=== PATIENT | female | born 1955 | race Caucasian/White ===

== ENCOUNTER 2018-06-07 05:42 | Inpatient (IN) ==
[2018-06-07] MEDS ORDERED: Naloxone 0.4 MG/ML INJ IVP PRN (09:49)
[2018-06-07] MEDS: 0.9 % Sodium Chloride 1,000 ML IVC SCH ×2 (11:36→23:08)
[2018-06-07] MEDS: Ondansetron 4 MG/2 ML VIAL IVP PRN ×2 (11:37→19:57)
[2018-06-07] MEDS: *HR* OxyCODONE Immed Rel 5 MG TABLET PO PRN ×2 (12:58→19:01)
--- NOTE | 2018-06-07 22:27 | Internal Med History&Physical ---
Date of Encounter: 06/07/18 Time of Encounter: 19:00 Internal Medicine - H&P: HPI Chief complaint: DIFFUSE ABDOMINAL PAIN WITH N/V. Admitted From: Home Plans for Post Hospital Care: Home History of present illness: Ms. Green is a 63 year old female Past Med Surg Social Fam HX - Past Medical History Medical history: fibromyalgia Psychiatric history: anxiety - Past Surgical History Additional surgical history: gastric bypass 1999 - Social History Smoking Status: Never smoker Smokeless Tobacco Status: No Alcohol use: none Drug use: none - Family History Father Maternal Age at : 82 Cause of : lung cancer Hx Family Cancer: Yes (lung cancer) Brother Maternal Age at : 72 Cause of : pneumonia Hx Family Neurologic Disorders: Yes (stroke in 2003) Internal Medicine - H&P: Meds Cyclobenzaprine [Flexeril] 10 mg PO HS 02/21/18 [History] Estradiol [Estrace] 1 mg PO DAILY 02/21/18 [History] Ferrous Sulfate [Iron] 325 mg PO DAILY 02/21/18 [History] Meloxicam [Mobic] 7.5 mg PO DAILY 02/21/18 [History] Tramadol HCl [Ultram] 50 mg PO BID PRN 02/21/18 [History] clonazePAM [Clonazepam] 1 mg PO DAILY 02/21/18 [History] BuPROPion SR (12 HR) [Wellbutrin SR] 150 mg PO DAILY 06/07/18 [History] Nitrofurantoin Monohyd/M-Cryst [Macrobid 100 mg Capsule] 100 mg PO BID 06/07/18 [History] Allergy/AdvReac Type Severity Reaction Status Date / Time Amoxicillin [From Augmentin] Allergy Hives Verified 03/24/18 16:22 clavulanic acid Allergy Hives Verified 03/24/18 16:22 [From Augmentin] codeine Allergy Swelling Verified 03/24/18 16:22 of Lip/Tongue/Throat fluconazole [From Diflucan] Allergy Blister Verified 06/07/18 00:19 - Constitutional Vitals: Temp Pulse Resp BP Pulse Ox 97.9 F 65 16 124/83 98 06/07/18 18:38 06/07/18 18:38 06/07/18 18:38 06/07/18 18:38 06/07/18 18:38 General appearance: Present: A&O X 3, no acute distress, answers questions appropriately Exam: xx - Assessment and Plan (1) SBO (small bowel obstruction) Current Visit: Yes Status: Acute (2) Abdominal adhesions Current Visit: Yes Status: Chronic (3) Fibromyalgia Current Visit: Yes Status: Chronic (4) Anxiety Current Visit: Yes Status: Chronic - Time Spent With Patient Total time spent is greater than 50% in coordination of care (as documented) at patient's floor/unit and/or counseling patient: 25 - 35 minutes
[2018-06-07] MEDS: *HR* Promethazine 25 MG/ML VIAL IVP PRN (23:08)
[2018-06-08 04:43] LABS: Basophils % 0.7 %; Eosinophils # 0.1 K/mcL (0.0-0.6); Eosinophils % 1.3 %; Hematocrit 37.6 % (35.3-44.9); Hemoglobin 12.3 g/dL (11.5-15.4); Immature Granulocytes % 0.3 % (0-4); Lymphocytes # 1.7 K/mcL (0.6-4.6); Lymphocytes % 26.8 %; Mean Corpuscular HGB Conc 32.7 g/dL (31.6-35.5); Mean Corpuscular Hemoglobin 32.4 pg (28.0-33.3); Mean Corpuscular Volume 98.9 fL (83.0-100.0); Mean Platelet Volume 9.3 fL (9.4-12.4); Monocytes # 0.4 K/mcL (0.0-1.3); Monocytes % 6.8 %; Neutrophils # 3.9 K/mcL (1.6-8.9); Platelet Count 240 K/mcL (140-400); Red Cell Distribution Width 11.9 % (11.5-14.5); Segmented Neutrophils % 64.1 %
[2018-06-08] MEDS: *HR* Promethazine 25 MG/ML VIAL IVP PRN ×3 (05:09→18:04)
[2018-06-08] MEDS: *HR* OxyCODONE Immed Rel 5 MG TABLET PO PRN ×3 (05:09→18:06)
[2018-06-08] MEDS: *HR* Heparin 5,000 UNIT/ML VIAL SQ SCH ×2 (05:09→18:06)
[2018-06-08 05:14] LABS: BUN/Creatinine Ratio 22 (6-26); Blood Urea Nitrogen 13 mg/dL (8-23); Calcium 8.5 mg/dL (8.6-10.3); Carbon Dioxide 27 mEq/L (23-29); Chloride 109 mEq/L (98-107); Glucose 102 mg/dL (70-105); Magnesium 1.7 mg/dL (1.6-2.6); Osmolality,Calculated 290 (280-300); Potassium 3.8 mEq/L (3.5-5.1); Sodium 140 mEq/L (136-145); eGFR For Non-African Americans > 60 (> 60)
--- NOTE | 2018-06-08 07:29 | General Surgery Consult Note ---
Date of Encounter: 06/08/18 Time of Encounter: 07:27 Assessment and Plan (1) SBO (small bowel obstruction) Current Visit: Yes Status: Acute I explained to the patient that actually I think she may have a partial small bowel obstruction and it appears to possibly be resolving.. I will go ahead and write for enemas to help stimulate bowel movements from below. Agree with IV fluid hydration and we will continue to follow with you. History of Present Illness Consult date: 06/08/18 Reason for consult: abdominal pain (Pain with abdominal distension) Requesting physician: Rajeev Walsh History of present illness: The patient is a 63-year-old female with a past medical history significant for anxiety and fibromyalgia who had a previous history of a gastric bypass performed in 1999 states that Tuesday evening she started having some abdominal pain and bloating sensation were abdomen felt hard. She states that normally she has a bowel movement 3 times a week in the last bowel movement was Tuesday which was normal. She says that after eating dinner the pain gradually from a 2 out of 10 to a 10 out of 10 with a severe gas like distention. She says that she did not have any flatus and she also had nausea and vomiting at 8:30 PM that evening. Because of her symptoms she presented herself to the hospital for further evaluation. She says that currently her pain is better but she is taking pain medication. She says she feels as if she has to pass some gas from below. She has some nausea but she has not had the sensation of needing to vomit. She denies any fever or chills symptoms. Past Med Surg Social Fam HX - Past Medical History Medical history: fibromyalgia Psychiatric history: anxiety - Past Surgical History Additional surgical history: gastric bypass 1999 - Social History Smoking Status: Never smoker Smokeless Tobacco Status: No Alcohol use: none Drug use: none - Family History Father Maternal Age at : 82 Cause of : lung cancer Hx Family Cancer: Yes (lung cancer) Brother Maternal Age at : 72 Cause of : pneumonia Hx Family Neurologic Disorders: Yes (stroke in 2003) Medications and Allergies Cyclobenzaprine [Flexeril] 10 mg PO HS 02/21/18 [History] Ferrous Sulfate [Iron] 325 mg PO DAILY 02/21/18 [History] Meloxicam [Mobic] 7.5 mg PO DAILY 02/21/18 [History] Tramadol HCl [Ultram] 100 mg PO Q8H PRN 02/21/18 [History] Amitriptyline [Elavil] 10 mg PO DAILY 06/08/18 [History] Bupropion HCl [Wellbutrin Xl] 300 mg PO DAILY 06/08/18 [History] Cyanocobalamin (Vitamin B-12) [Vitamin B-12] 1,000 mcg SL DAILY 06/08/18 [History] Estradiol 0.5 mg PO DAILY 06/08/18 [History] Multivitamin [Daily Multiple Vitamin] 1 each PO DAILY 06/08/18 [History] clonazePAM [Clonazepam] 0.5 mg PO HS 06/08/18 [History] Allergy/AdvReac Type Severity Reaction Status Date / Time Amoxicillin [From Augmentin] Allergy Hives Verified 06/08/18 11:38 clavulanic acid Allergy Hives Verified 06/08/18 11:38 [From Augmentin] codeine Allergy Swelling Verified 06/08/18 11:38 of Lip/Tongue/Throat fluconazole [From Diflucan] Allergy Blister Verified 06/08/18 11:38 Review of Systems All systems PM: reviewed and no additional remarkable complaints except as stated All systems PM: The remainder of the systems were reviewed and are negative General Surgery Exam Initial Vital Signs Temp Pulse Resp BP Pulse Ox 98.6 F 72 16 100/67 95 06/07/18 07:14 06/07/18 07:14 06/07/18 07:14 06/07/18 07:14 06/07/18 07:14 - Eyes PERRL, normal ocular movement - Respiratory normal expansion, normal respiratory effort, clear to auscultation - Cardiovascular Cardiovascular exam: Present: RRR, no murmurs/rubs/gallops - Abdomen Abdomen general surgery: Present: bowel sounds present, soft (Noted pain to palpation in the mid and upper abdominal area. No masses palpated. Noted midline incision well-healed with no incisional hernia defect noted) Exam Initial Vital Signs Temp Pulse Resp BP Pulse Ox 98.6 F 72 16 100/67 95 06/07/18 07:14 06/07/18 07:14 06/07/18 07:14 06/07/18 07:14 06/07/18 07:14 Results - Labs 06/08/18 04:24 03/28/19 04:24 Abnormal lab results RBC 3.80 M/mcL (3.82-4.97) L 06/08/18 04:24 MPV 9.3 fL (9.4-12.4) L 06/08/18 04:24 Chloride 109 mEq/L (98-107) H 06/08/18 04:24 Creatinine 0.59 mg/dL (0.60-1.20) L 06/08/18 04:24 Calcium 8.5 mg/dL (8.6-10.3) L 06/08/18 04:24 Diabetes panel 06/08/18 Range/Units 04:24 Sodium 140 (136-145) mEq/L Potassium 3.8 (3.5-5.1) mEq/L Chloride 109 H (98-107) mEq/L Carbon Dioxide 27 (23-29) mEq/L BUN 13 (8-23) mg/dL Creatinine 0.59 L (0.60-1.20) mg/dL Glucose 102 (70-105) mg/dL Calcium 8.5 L (8.6-10.3) mg/dL Calcium panel 06/08/18 Range/Units 04:24 Calcium 8.5 L (8.6-10.3) mg/dL Pituitary panel 06/08/18 Range/Units 04:24 Sodium 140 (136-145) mEq/L Potassium 3.8 (3.5-5.1) mEq/L Chloride 109 H (98-107) mEq/L Carbon Dioxide 27 (23-29) mEq/L BUN 13 (8-23) mg/dL Creatinine 0.59 L (0.60-1.20) mg/dL Glucose 102 (70-105) mg/dL Calcium 8.5 L (8.6-10.3) mg/dL Adrenal panel 06/08/18 Range/Units 04:24 Sodium 140 (136-145) mEq/L Potassium 3.8 (3.5-5.1) mEq/L Chloride 109 H (98-107) mEq/L Carbon Dioxide 27 (23-29) mEq/L BUN 13 (8-23) mg/dL Creatinine 0.59 L (0.60-1.20) mg/dL Glucose 102 (70-105) mg/dL Calcium 8.5 L (8.6-10.3) mg/dL All other labs normal. - Imaging CT scan - abdomen: report reviewed, image reviewed (I personally reviewed the CT scan images and report which shows evidence of air in the small bowel and the colon. There is copious amounts of stool throughout the entire colon. Signs likely consistent with an ileus versus partial small bowel obstruction.) Consult Discharge Plan - Plan Referrals: NONE,PCP [Primary Care Provider] -
[2018-06-08] MEDS ORDERED: Milk and Molasses Enema 200 ML RC ONE (07:30)
[2018-06-08] MEDS: BuPROPion SR (12 HR) 150 MG TABLET PO SCH ×2 (08:32→21:07)
[2018-06-08] MEDS: clonazePAM 0.5 MG TABLET PO SCH ×2 (08:32→21:07)
[2018-06-08] MEDS: 0.9 % Sodium Chloride 1,000 ML IVC SCH (15:51)
--- NOTE | 2018-06-08 17:54 | Internal Med Progress Note ---
Hospitalist Progress Note - Encounter Date of Encounter: 06/08/18 Time of Encounter: 11:00 - Subjective Interval History: Patient reports some improvement in abdominal discomfort this morning - Exam Vitals: Temp Pulse Resp BP Pulse Ox 98.7 F 82 14 138/80 96 06/08/18 16:14 06/08/18 16:14 06/08/18 16:14 06/08/18 16:14 06/08/18 16:14 Exam: Gen.: Nonacute distress, alert and oriented 3 ENT: Mucosal membranes moist Respiratory: Lungs are clear to auscultation bilaterally without any wheezing rhonchi or rales Cardiovascular: Normal S1 and S2 regular rate rhythm no murmurs rubs or gallops Abdomen: Soft, nontender and nondistended with positive bowel sounds Extremities: No lower extremity edema Skin: Normal color - Assessment and Plan (1) SBO (small bowel obstruction) Current Visit: Yes Status: Acute Assessment and Plan: Gen. surgery consult with recommendations for bowel stimulation with enema (2) Fibromyalgia Current Visit: Yes Status: Chronic Assessment and Plan: Continue home medications (3) Anxiety Current Visit: Yes Status: Chronic Assessment and Plan: Continue home medications DVT Prophylaxis: Subcutaneous heparin - Time Spent with Patient Total time spent is greater than 50% in coordination of care (as documented) at patient's floor/unit and/or counseling patient: Internal Medicine: Result - Labs CBC & Chem 7: 06/08/18 04:24 06/08/18 04:24 Labs: Short CBC 06/08/18 Range/Units 04:24 WBC 6.2 (4.3-11.1) K/mcL Hgb 12.3 (11.5-15.4) g/dL Hct 37.6 (35.3-44.9) % Plt Count 240 (140-400) K/mcL Neutrophils # 3.9 (1.6-8.9) K/mcL BMP 06/08/18 04:24 Sodium 140 Potassium 3.8 Chloride 109 H Carbon Dioxide 27 BUN 13 Creatinine 0.59 L Glucose 102 Calcium 8.5 L - Impressions Impressions KUB X-Ray 06/08/18 07:00 IMPRESSION: The bowel gas pattern appears normal with no findings to suggest an ileus or obstruction. D/ / 06/08/2018 08:33:02 Lizandro Rodriguez MD / maryan Interpreting Provider: Lizandro Rodriguez MD Consult Discharge Plan - Plan Referrals: NONE,PCP [Primary Care Provider] -
[2018-06-09] MEDS: 0.9 % Sodium Chloride 1,000 ML IVC SCH ×2 (02:56→09:32)
[2018-06-09] MEDS: *HR* OxyCODONE Immed Rel 5 MG TABLET PO PRN (04:29)
[2018-06-09] MEDS ORDERED: *HR* OxyCODONE Immed Rel 5 MG TABLET PO PRN (05:53)
[2018-06-09] MEDS: *HR* Heparin 5,000 UNIT/ML VIAL SQ SCH ×2 (06:16→18:52)
[2018-06-09 08:26] LABS: Basophils % 0.6 %; Eosinophils # 0.1 K/mcL (0.0-0.6); Hematocrit 38.5 % (35.3-44.9); Hemoglobin 12.4 g/dL (11.5-15.4); Immature Granulocytes % 0.2 % (0-4); Lymphocytes # 1.6 K/mcL (0.6-4.6); Mean Corpuscular HGB Conc 32.2 g/dL (31.6-35.5); Mean Corpuscular Hemoglobin 31.6 pg (28.0-33.3); Mean Platelet Volume 9.5 fL (9.4-12.4); Monocytes # 0.4 K/mcL (0.0-1.3); Monocytes % 8.4 %; Neutrophils # 2.7 K/mcL (1.6-8.9); Platelet Count 241 K/mcL (140-400); Red Blood Count 3.93 M/mcL (3.82-4.97); Red Cell Distribution Width 11.6 % (11.5-14.5); Segmented Neutrophils % 55.8 %
[2018-06-09 08:34] LABS: BUN/Creatinine Ratio 16 (6-26); Blood Urea Nitrogen 10 mg/dL (8-23); Calcium 8.8 mg/dL (8.6-10.3); Carbon Dioxide 29 mEq/L (23-29); Chloride 106 mEq/L (98-107); Glucose 94 mg/dL (70-105); Osmolality,Calculated 291 (280-300); Sodium 141 mEq/L (136-145); eGFR For Non-African Americans > 60 (> 60)
[2018-06-09] MEDS: *HR* Promethazine 25 MG/ML VIAL IVP PRN ×2 (09:10→16:28)
[2018-06-09] MEDS: clonazePAM 0.5 MG TABLET PO SCH ×2 (09:11→21:22)
[2018-06-09] MEDS: BuPROPion SR (12 HR) 150 MG TABLET PO SCH ×2 (09:11→21:22)
--- NOTE | 2018-06-09 11:59 | General Surgery Progress Note ---
Date of Encounter: 06/09/18 Time of Encounter: 11:59 - Assessment and Plan (1) Partial small bowel obstruction Current Visit: Yes Status: Acute Pt states discomfort is resolved. She is passing flatus but has not had a bowel movement today. Noted the primary team has ordered clear liquid diet. If she tolerates it is reasonable to advanced as tolerated. surgery will follow from a distance while she remains in the hospital. Subjective Patient reports: no new complaints, pain is less, voiding w/o difficulty, flatus, bowel movement (x1), afebrile Narrative: states abdomen feels better and she is passing gas. Objective Vital Signs - Last 8 Hours Temp Pulse Resp BP Pulse Ox 06/09/18 11:43 98.1 F 71 16 115/75 98 06/09/18 07:03 97.6 F 76 16 113/70 97 06/09/18 04:01 98.8 F 67 15 110/73 96 Intake and Output 06/08/18 06/09/18 06/09/18 23:59 07:59 15:59 Intake Total 0 / 0 1000 / 1000 Balance 0 / 0 1000 / 1000 Intake: IV Fluids 1000 / 1000 0.9 % Sodium Chloride 1,000 ML 1000 / 1000 @ 75 mls/hr IVC .[id number] JOSIE Rx #:[id number] Oral 0 / 0 0 / 0 Other: Meal NPO Stool Size Small Stool Consistency soft # Voids 1 # Bowel Movements 1 Weight 75.313 kg 77.3 kg Blood Glucose* 88 83 Patient Weight 06/09/18 23:59 Weight 77.3 kg - General physical appearance no distress, no pain - Eyes normal ocular movement - ENT atraumatic, normocephalic - Neck Neck exam: trachea midline - Respiratory normal expansion, clear to auscultation - Cardiovascular Cardiovascular exam: Present: RRR - Abdomen Abdomen: Present: bowel sounds present, soft, non tender Hernia: none - Integumentary no rash - Neurologic normal coordination, normal sensation - Musculoskeletal normal posture - Psychiatric oriented to time, oriented to person, oriented to place, speech is normal, memory intact - Labs 06/09/18 07:55 06/09/18 07:55 Diabetes panel 06/09/18 Range/Units 07:55 Sodium 141 (136-145) mEq/L Potassium 4.0 (3.5-5.1) mEq/L Chloride 106 (98-107) mEq/L Carbon Dioxide 29 (23-29) mEq/L BUN 10 (8-23) mg/dL Creatinine 0.62 (0.60-1.20) mg/dL Glucose 94 (70-105) mg/dL Calcium 8.8 (8.6-10.3) mg/dL Calcium panel 06/09/18 Range/Units 07:55 Calcium 8.8 (8.6-10.3) mg/dL Pituitary panel 06/09/18 Range/Units 07:55 Sodium 141 (136-145) mEq/L Potassium 4.0 (3.5-5.1) mEq/L Chloride 106 (98-107) mEq/L Carbon Dioxide 29 (23-29) mEq/L BUN 10 (8-23) mg/dL Creatinine 0.62 (0.60-1.20) mg/dL Glucose 94 (70-105) mg/dL Calcium 8.8 (8.6-10.3) mg/dL Adrenal panel 06/09/18 Range/Units 07:55 Sodium 141 (136-145) mEq/L Potassium 4.0 (3.5-5.1) mEq/L Chloride 106 (98-107) mEq/L Carbon Dioxide 29 (23-29) mEq/L BUN 10 (8-23) mg/dL Creatinine 0.62 (0.60-1.20) mg/dL Glucose 94 (70-105) mg/dL Calcium 8.8 (8.6-10.3) mg/dL Consult Discharge Plan - Plan Referrals: NONE,PCP [Primary Care Provider] -
--- NOTE | 2018-06-09 18:41 | Internal Med Progress Note ---
Hospitalist Progress Note - Encounter Date of Encounter: 06/09/18 Time of Encounter: 11:00 - Subjective Interval History: Patient's small bowel obstruction has resolved and has had bowel movements. Patient however still complaining of abdominal discomfort on clear liquid diet that was started today. - Exam Vitals: Temp Pulse Resp BP Pulse Ox 98.8 F 72 16 121/73 96 06/09/18 16:21 06/09/18 16:21 06/09/18 16:21 06/09/18 16:21 06/09/18 16:21 Exam: Gen.: Nonacute distress, alert and oriented 3 ENT: Mucosal membranes moist Respiratory: Lungs are clear to auscultation bilaterally without any wheezing rhonchi or rales Cardiovascular: Normal S1 and S2 regular rate rhythm no murmurs rubs or gallops Abdomen: Soft, nontender and nondistended with positive bowel sounds Extremities: No lower extremity edema Skin: Normal color - Assessment and Plan (1) SBO (small bowel obstruction) Current Visit: Yes Status: Acute Assessment and Plan: Resolved; patient still with abdominal discomfort on clear liquid diet which was started today Will observe overnight (2) Fibromyalgia Current Visit: Yes Status: Chronic Assessment and Plan: Continue home medications (3) Anxiety Current Visit: Yes Status: Chronic Assessment and Plan: Continue home medications DVT Prophylaxis: Subcutaneous heparin - Time Spent with Patient Total time spent is greater than 50% in coordination of care (as documented) at patient's floor/unit and/or counseling patient: Internal Medicine: Result - Labs CBC & Chem 7: 06/09/18 07:55 06/09/18 07:55 Labs: Short CBC 06/09/18 Range/Units 07:55 WBC 4.9 (4.3-11.1) K/mcL Hgb 12.4 (11.5-15.4) g/dL Hct 38.5 (35.3-44.9) % Plt Count 241 (140-400) K/mcL Neutrophils # 2.7 (1.6-8.9) K/mcL BMP 06/09/18 07:55 Sodium 141 Potassium 4.0 Chloride 106 Carbon Dioxide 29 BUN 10 Creatinine 0.62 Glucose 94 Calcium 8.8 Consult Discharge Plan - Plan Referrals: NONE,PCP [Primary Care Provider] -
[2018-06-09] MEDS ORDERED: tiZANidine 4 MG TABLET PO SCH (21:00)
[2018-06-10] MEDS: 0.9 % Sodium Chloride 1,000 ML IVC SCH (05:18)
[2018-06-10] MEDS: traMADol 50 MG TABLET PO PRN ×2 (05:27→11:32)
[2018-06-10] MEDS: *HR* Heparin 5,000 UNIT/ML VIAL SQ SCH (05:27)
[2018-06-10] MEDS: BuPROPion SR (12 HR) 150 MG TABLET PO SCH (08:22)
[2018-06-10] MEDS: clonazePAM 0.5 MG TABLET PO SCH (08:22)
[2018-06-10] MEDS ORDERED: Bisacodyl 10 MG RECTAL SUPPOSITORY RC PRN (09:00)
[2018-06-10 11:12] VITALS: BP 128/85
--- NOTE | 2018-06-10 13:18 | Discharge Summary ---
Date of Encounter: 06/10/18 Time of Encounter: 11:00 - Discharge Diagnosis (1) SBO (small bowel obstruction) Priority: Primary Status: Acute (2) Fibromyalgia Priority: Secondary Status: Chronic (3) Anxiety Priority: Secondary Status: Chronic Hospital course: Patient is a 63-year-old female who presented due to abdominal pain with nausea/vomiting. In the ER, patient was found to have concerns for ileus versus partial small bowel obstruction due to multiple loops of prominent small bowel in the abdomen and pelvis on abdominal/pelvis CT. During patients hospital stay general surgery was consulted and repeat imaging was done and she did not show any obstruction; patients diet was advanced per recommendations. Repeat imaging of abdomen did not show evidence of small bowel obstruction and the patient will be discharged home to continue clear diet and advance as tolerates. - Time Spent with Patient Total time spent providing and/or coordinating discharge services: - Discharge Medications Prescriptions: New Promethazine [Phenergan] 12.5 mg PO Q8HR #15 tablet Continue Tramadol HCl [Ultram] 100 mg PO Q8H PRN PRN Reason: Pain Meloxicam [Mobic] 7.5 mg PO DAILY Cyclobenzaprine [Flexeril] 10 mg PO HS Ferrous Sulfate [Iron] 325 mg PO DAILY Multivitamin [Daily Multiple Vitamin] 1 each PO DAILY Bupropion HCl [Wellbutrin Xl] 300 mg PO DAILY Amitriptyline [Elavil] 10 mg PO DAILY Estradiol 0.5 mg PO DAILY clonazePAM [Clonazepam] 0.5 mg PO HS Cyanocobalamin (Vitamin B-12) [Vitamin B-12] 1,000 mcg SL DAILY Home Medications: Cyclobenzaprine [Flexeril] 10 mg PO HS 02/21/18 [History] Ferrous Sulfate [Iron] 325 mg PO DAILY 02/21/18 [History] Meloxicam [Mobic] 7.5 mg PO DAILY 02/21/18 [History] Tramadol HCl [Ultram] 100 mg PO Q8H PRN 02/21/18 [History] Amitriptyline [Elavil] 10 mg PO DAILY 06/08/18 [History] Bupropion HCl [Wellbutrin Xl] 300 mg PO DAILY 06/08/18 [History] Cyanocobalamin (Vitamin B-12) [Vitamin B-12] 1,000 mcg SL DAILY 06/08/18 [History] Estradiol 0.5 mg PO DAILY 06/08/18 [History] Multivitamin [Daily Multiple Vitamin] 1 each PO DAILY 06/08/18 [History] clonazePAM [Clonazepam] 0.5 mg PO HS 06/08/18 [History] Promethazine [Phenergan] 12.5 mg PO Q8HR #15 tablet 06/10/18 [Rx] Allergies/Adverse Reactions: Allergy/AdvReac Type Severity Reaction Status Date / Time Amoxicillin [From Augmentin] Allergy Hives Verified 06/08/18 11:38 clavulanic acid Allergy Hives Verified 06/08/18 11:38 [From Augmentin] codeine Allergy Swelling Verified 06/08/18 11:38 of Lip/Tongue/Throat fluconazole [From Diflucan] Allergy Blister Verified 06/08/18 11:38 Date of admission: 06/07/18 09:50 Primary care physician: PCP NONE Consults: 06/07/18 18:31 Consult to Surgery [CONS] Routine Consulting Provider: [facility] Reason for Consult: SBO Time Notified: 18:30 Call Completed: Yes - Constitutional Vitals: Temp Pulse Resp BP Pulse Ox 98.1 F 74 16 128/85 97 06/10/18 11:11 06/10/18 11:11 06/10/18 11:11 06/10/18 11:11 06/10/18 11:11 General appearance: Present: A&O X 3, no acute distress, answers questions appropriately Exam: Gen.: Nonacute distress, alert and oriented 3 ENT: Mucosal membranes moist Respiratory: Lungs are clear to auscultation bilaterally without any wheezing rhonchi or rales Cardiovascular: Normal S1 and S2 regular rate rhythm no murmurs rubs or gallops Abdomen: Soft, nontender and nondistended with positive bowel sounds Extremities: No lower extremity edema Skin: Normal color - Patient Status Disposition: Home, Self-Care Condition: Good - Discharge Instructions Instructions: Bowel Obstruction (GEN), Ileus (GEN) Follow Up With: NONE,PCP [Primary Care Provider] -
== END 2018-06-10 16:07 | disposition home or self-care (01) | DRG 247 ==
LOC: 2ANU → SUATTDRO 09:50
PROVIDERS: ADMIT Internal Medicine; ATTEND Hospitalist